=== PATIENT | female | born 1945 | race African-American/Black ===

== ENCOUNTER → 2025-01-28 | Day surgery (SDC) | payer MEDICARE | LOC: CSHULT 12:27 | PROVIDERS: ATTEND Surgery | PROC: 0H9U3ZX Drainage of Left Breast, Percutaneous Approach, Diagnostic (ICD-10-PCS; principal; 2025-01-28) | DX: C50.812 Malignant neoplasm of overlapping sites of left female breast (principal); C77.3 Secondary and unspecified malignant neoplasm of axilla and upper limb lymph nodes | CPT/HCPCS: 19083; A4648; 88305; 88341; 88342 ==